=== PATIENT | male | born 1960 ===

== ENCOUNTER 2017-11-02 00:47 | Inpatient (IN) | payer OTHER ==
[2017-11-01 15:11] LABS: INR 1.05
[~2017-11-02] VITALS: Ht 195.6 cm; Wt 110.7 kg
[2017-11-02] VITALS (15 sets, daily range): BP systolic 96–129; BP diastolic 61–90
[~2017-11-02 00:47] MED LIST: CETI10CA8 PO; DIPH-740 PO; FLUT16SP19 NS; IBUP100T54 PO; MULT1CAP59 PO
[2017-11-02] MEDS ORDERED: NORMOSOL R SOLN(*) 1000 ML BAG 1,000 ML IV PRN ×2 (06:15→11:20)
[2017-11-02] MEDS ORDERED: TRANEXAMIC AC 1000 MG/10ML SDV 1,000 MG in DEXTROSE 5% 50 ML BAG 50 ML IV ONE (06:15)
[2017-11-02] MEDS ORDERED: ceFAZolin(*) 2GM/D5W 50ML 50 ML IVPB ONE (06:15)
[2017-11-02] MEDS ORDERED: cloNIDine EPIDUR INJ 100MCG/ML 40 MCG, ROPIVACAINE 0.5% 20 ML VIAL 25 ML, EPINEPHrine H... INJ ONE (06:15)
[2017-11-02] MEDS ORDERED: LIDOCAINE/SOD BICARB 8.4% SYR ID ONE (06:15)
[2017-11-02] MEDS ORDERED: MIDAZOLAM 2 MG/2 ML VIAL IVP PRN (06:15)
[2017-11-02] MEDS ORDERED: FAMOTIDINE 20 MG TAB PO ONE (06:15)
[2017-11-02] MEDS ORDERED: PROPOFOL EMUL(*) 10MG/ML 20 ML 40 ML ONE (07:03)
[2017-11-02] MEDS ORDERED: ONDANSETRON 4 MG/2 ML VIAL ONE (07:03)
[2017-11-02] MEDS ORDERED: MORPHINE PF 5 MG/10 ML AMP ONE (07:03)
[2017-11-02] MEDS ORDERED: DEXAMETHASONE SOD PHOS 10MG/ML ONE (07:03)
[2017-11-02] MEDS ORDERED: LIDOCAINE MPF 1% 5 ML VIAL ONE (07:03)
[2017-11-02] MEDS ORDERED: fentaNYL CITR 100 MCG/2 ML AMP ONE ×2 (07:38→10:26)
[2017-11-02] MEDS ORDERED: KETOROLAC 15 MG/ML VIAL ONE (10:31)
[2017-11-02] MEDS ORDERED: ACETAMINOPHEN(*)1000 MG/100 ML 100 ML IVPB ONE (10:44)
--- NOTE | 2017-11-02 11:09 | RADIOLOGY IMAGING REPORT ---
FACILITY: [facility] PATIENT NAME: Libra Kirkpatrick : 1960 MR: [id number] V: [id number] EXAM DATE: ORDERING PHYSICIAN: FELY MICHELLE TECHNOLOGIST: Location: [facility] Patient: Libra Kirkpatrick : 1960 Visit/Account:[id number] Date of Sevice: 11/02/2017 Study: KNEE LIMITED RIGHT Indication: Pain Comparison study: None Findings: AP and lateral views of the right knee demonstrates a the patient is status post placement of a tibial intramedullary john and a total knee replacement. There are postoperative changes present . There is no evidence of acute bony abnormality. IMPRESSION: Status post right total knee replacement. Report Dictated By: Blas Trinh at 11/02/2017 11:04 AM Report E-Signed By: Blas Trinh at 11/02/2017 11:06 AM WSN:[id number]
[2017-11-02] MEDS ORDERED: FLUSH 10 ML SYR IVP PRN (11:20)
[2017-11-02] MEDS ORDERED: BISACODYL 10 MG SUPP PR PRN (11:20)
[2017-11-02] MEDS ORDERED: MORPHINE SULFATE 30 MG PCA IV PRN (11:20)
[2017-11-02] MEDS ORDERED: NALOXONE HCL 0.4 MG/ML VIAL IVP PRN (11:20)
[2017-11-02] MEDS ORDERED: MAGNESIUM HYDROXIDE* 30ML UDCP PO PRN (11:20)
[2017-11-02] MEDS ORDERED: PROMETHAZINE 25 MG/ML 1 ML AMP IVP PRN (11:20)
[2017-11-02] MEDS ORDERED: ONDANSETRON 4 MG/2 ML VIAL IVP PRN (11:20)
[2017-11-02] MEDS ORDERED: MORPHINE 2 MG/ML SYR IVP PRN (11:25)
[2017-11-02] MEDS ORDERED: diphenhydrAMINE 25 MG CAP PO PRN (11:30)
[2017-11-02] MEDS: CETIRIZINE HCL 10 MG TAB PO SCH (13:00)
--- NOTE | 2017-11-02 13:10 | Hospitalist Consultation ---
History of Present Illness Requesting Physician Dr. Huber Reason for Consult Medication Management Chief Complaint s/p right total knee replacement History of Present Illness He was admitted s/p right knee replacement. It was reported that surgery went well and without complications. He has history only of seasonal allergies. He has no history of DVT/ PE. History Problems: (1) Seasonal allergies Status: Chronic Home Meds Reported Medications Cetirizine Hcl (ZYRTEC) 10 Mg Capsule, 10 MG PO QDAY, CAPSULE 10/27/17 Fluticasone Prop 50 Mcg Ns (FLONASE 50 MCG NS) 16 Gm [place].susp, 1 SPRAY NS DAILY, BOT 1 spray in each nare 10/27/17 Diphenhydramine Hcl (BENADRYL) 25 Mg Capsule, 25 MG PO DAILY Y for ALLERGY SYMPTOMS, CAPSULE 10/27/17 Ibuprofen (IBUPROFEN) 100 Mg Tablet, 2-3 TAB PO DAILY Y for PAIN 10/27/17 Multivitamin (MULTIVITAMINS) 1 Each Capsule, 1 EACH PO DAILY, CAPSULE 10/27/17 Allergies: Coded Allergies: latex (Verified Allergy, Intermediate, REDDNESS/SWELLING, 10/27/17) Hx Smoking: No Caffeine Intake: Coffee Caffeine/Cups Per Day: 1 POT OF COFFEE Hx Alcohol Use: Yes Alcohol Used: Beer Hx Substance Use Disorder: No Social Drug Use: Never History of IV Drug Use: No Review of Systems All Systems Reviewed/Normal: Yes, Except as Noted Exam Vital Signs Vital Signs Date Time Temp Pulse Resp B/P (MAP) Pulse Ox O2 Delivery O2 Flow Rate FiO2 11/02/17 12:00 90 Nasal Cannula 3.5 11/02/17 12:00 97.8 60 12 121/76 (91) General Appearance: Alert, Awake, No Acute Distress, Afebrile Cardiovascular: Regular Rate and Rhythm Respiratory: No Respiratory Distress, Clear to Auscultation Psych: Alert & Oriented X3, Appropriate Mood & Affect Assessment and Plan Problems: (1) Status post right knee replacement Status: Acute Assessment & Plan: He will be on Aspirin 325mg daily for DVT prophylaxis for 30 days. He has no history of DVT or PE. (2) Seasonal allergies Status: Chronic Assessment & Plan: He is on chronic treatment with Zyrtec, Flonase and Benadryl. We will continue these medications during admission. Venous Thromboembolism Antithrombotics Is Pt On Any Antithrombotics?: No Prophylaxis Tx Contraindicated Pharmacological Contraindicati: Surgical Contraindication Exam Sepsis Risk: No Definite Risk JULIANNA GOODEN OVERLOCK SLEEVE SETTER Nov 02, 2017 13:10
[2017-11-02] MEDS: ceFAZolin(*) 2GM/D5W 50ML 50 ML IVPB SCH ×2 (14:44→23:24)
[2017-11-02] MEDS ORDERED: ACETAMINOPHEN 500 MG TAB PO PRN (19:00)
[2017-11-02] MEDS: KETOROLAC TROM 10MG TAB PO PRN (20:39)
[2017-11-02] MEDS: DOCUSATE SODIUM 100 MG CAP PO SCH (20:40)
[2017-11-02] MEDS: ACETAMINOPHEN 500 MG TAB PO SCH (20:40)
[2017-11-03] VITALS (7 sets, daily range): BP systolic 100–130; BP diastolic 60–80; Ht 195.6 cm; Wt 110.7 kg
[2017-11-03] MEDS: KETOROLAC TROM 10MG TAB PO PRN ×2 (04:21→11:32)
[2017-11-03] MEDS: oxyCODONE HCL 5 MG CAP PO PRN ×4 (04:21→19:51)
[2017-11-03] MEDS: ACETAMINOPHEN 500 MG TAB PO SCH ×3 (04:21→19:50)
--- NOTE | 2017-11-03 04:31 | OPERATIVE REPORT 1 ---
EVENT DATE: November 02, 2017 SURGEON: Ludwig Huber MD ANESTHESIOLOGIST: Chad Lucas MD ANESTHESIA: Spinal followed by general. SPOT MAN: Jayesh Yancey PA-C PREOPERATIVE DIAGNOSIS Right knee severe degenerative joint disease with retained tibial nail and one proximal screw. POSTOPERATIVE DIAGNOSIS Right knee severe degenerative joint disease with retained tibial nail and one proximal screw. PROCEDURE PERFORMED Right total knee arthroplasty. IMPLANTS MicroPort medial pivot shift CS system with a 6 femur, 6 tibia, 14 mm CS insert , 35 x 8 symmetric patella, femur cut 6 degrees valgus, 10 mm. We also utilized two packages of DonJoy cobalt blue cement and one ZipLine wound closure system. Patient received 1 gram of IV tranexamic acid by anesthesia 10 minutes prior to start and after the implantation of the prostheses. We also utilized 50 mL of our standard ropivacaine/Toradol cocktail. SPECIMENS None. COMPLICATIONS None. ESTIMATED BLOOD LOSS Less than 300 mL. OPERATION Patient received appropriate preoperative antibiotic, was brought to the OR, where Dr. Lucas performed spinal followed by general anesthesia. Right thigh tourniquet was placed, right lower extremity prepped and draped in the usual sterile fashion. Midline incision, followed by medial parapatellar arthrotomy. I dissected subperiosteally along the medial tibial plateau to the level of the semimembranosus insertion. We achieved hemostasis as we went with Bovie cautery. Significant fat pad was excised, patella released and everted. We outed the tibial screw inferior medial to the tibial tubercle. However, the implant had an end cap which contacted the screw, so unless we would need to take the screw out or the implant out, we left the end cap alone at this point. We noted eburnation in the medial compartment and grade 3 and 4 changes of the patellofemoral compartment, grade 2 changes in the lateral tibial plateau, grade 3 and 4 changes in the lateral femoral condyle. Significant spurring was noted around the femoral condyles and superior trochlear groove, and these were removed with rongeur. Significant spurring was noted over the medial tibial plateau, and this was removed with the rongeur. ACL was absent. PCL was released subperiosteally by Bovie. The knee was hyperflexed at this time. We placed appropriate retractors. Remaining articular cartilage was removed from the distal femoral condyles by sagittal saw. Step cut drill was utilized to broach the canal. We placed our intramedullary guide, setting up the distal cut at 10 mm, 6 degrees valgus. Appropriate retractors were placed to protect the soft tissue. We made our distal cut. 3 degree external rotation guide and sizing guide was then positioned, referencing out the epicondyles, posterior condyles, and anterior flange. Femur was sized to a 6, and the 3 degree holes were drilled. The 4-in-1 cutting guide was then positioned. Z retractors were placed to protect the soft tissue, and four cuts were made. Tibia was brought anteriorly on the femur with appropriate retractors. Extramedullary guide was then set up. Referenced for slope and rotation and depth of 10 mm of the least involved lateral tibial plateau. Block was pinned into place, appropriate retractors placed to protect the soft tissues. Tibial cut was made, sized to a 6. There were further osteophytes noted at the posterior tibial plateau and laterally, and these were removed by rongeur. Stump of the PCL and medial and lateral meniscus were removed by Bovie. Significant posterior osteophytes were removed with curved osteotome, and capsule elevated with a Georges elevator. As we went through the case, we noted two other significant osteophytes, at least 4 x 3 x 4 cm, removed from the posterior capsule region. Tibial base plate was then set up. Trial was then set up, referencing from the previous rotation. This was pinned into place. We started with 12 mm insert, then moved up to a 14. We then placed our trial femur, brought the knee knee into full extension, placed our alignment john, and tibia was aligned appropriately with appropriate slope and referencing centrally in the ankle. We had stability through varus, valgus stress, and at 90 degrees, we had satisfactory drawer. We then placed the knee in full extension, sized the patella to 26 mm in depth, cut this down 8 mm, and this accepted a peg hole guide of 35 x 8, which was then positioned inferomedially. Peg hole was drilled. Patella was placed. Knee brought up into flexion. Peg hole was drilled for the femur, placed, and trochlear chip was cut and trial was placed. Again we had full extension, flexion of 140 degrees, stability through varus, valgus stress. The patella tracked well. At 90 degrees, we had solid anterior drawer. Patella, femur, trial tibial insert were removed. Appropriate retractors were placed. We set up our tower for the tibia. We were able to cut, ream and punch and made no contact with either the screw or the tibial nail. Secondary to that, we elected to leave this in, and this was the patient's preference if at all possible also. We then removed all instrumentation, placed a bone plug in the distal femur and brought the knee out in full extension. We copiously irrigated by pulse lavage while we mixed 2 packages of cobalt blue cement. We injected 10 mL of our cocktail into the posterior capsule, brought the knee up into flexion, placed appropriate retractors, cemented the tibia into place followed by our 14 mm CS insert, then our 6 femur. Excess cement was removed. Knee brought up to full extension with axial compression while we cemented the patella. We then injected the remainder of our cocktail into the distal quad mechanism. After 15 minutes, the cement had hardened. Again we had the aforementioned range of motion and stability. We copiously irrigated by pulse lavage once again. We then closed the arthrotomy with #2 Vicryl followed by 2-0 Vicryl for subcutaneous tissues and ZipLine wound closure system at 45 degrees. Compressive dressing was applied. Patient was extubated and taken to recovery in stable condition. Hospitalist team will be consulted for medical management and anticoagulation, PT and OT for rehab. JEAN-PAUL
[2017-11-03] MEDS: ceFAZolin(*) 2GM/D5W 50ML 50 ML IVPB SCH (07:26)
[2017-11-03] MEDS: CETIRIZINE HCL 10 MG TAB PO SCH (09:04)
[2017-11-03] MEDS: ASPIRIN 325 MG ENTERIC COATED PO SCH (09:04)
[2017-11-03] MEDS: DOCUSATE SODIUM 100 MG CAP PO SCH ×2 (09:04→20:55)
[2017-11-03] MEDS: POLYETHYLENE GLYCOL 17 GM PKT PO SCH (09:06)
[2017-11-03] MEDS: FLUTICASONE PROP 0.05% 16 GM SCH (09:06)
--- NOTE | 2017-11-03 09:53 | Hospitalist Progress Note ---
Subjective Progress Notes Subjective He has complaints of difficulty urinating this morning. Patient Complains of: Cardiovascular: No: Chest Pain Respiratory: No: Shortness of Breath Physical Exam Vital Signs Date Time Temp Pulse Resp B/P (MAP) Pulse Ox O2 Delivery O2 Flow Rate FiO2 11/03/17 07:43 98.1 66 13 113/67 (82) 92 Nasal Cannula 4.0 Intake and Output 11/04/17 07:00 Intake Total 95.9 ml Output Total 10 ml Balance 85.9 ml IV Total 95.9 ml Output Urine Total 10 ml # Voids 1 General Appearance: Alert, Awake, No Acute Distress, Afebrile Cardiovascular: Regular Rate and Rhythm Respiratory: No Respiratory Distress, Clear to Auscultation Psych: Alert & Oriented X3, Appropriate Mood & Affect Result Diagram: 11/03/17 0533 Assessment and Plan Problems: (1) Status post right knee replacement Status: Acute Assessment & Plan: He will be on Aspirin 325mg daily for DVT prophylaxis for 30 days. He has no history of DVT or PE. (2) Seasonal allergies Status: Chronic Assessment & Plan: He is on chronic treatment with Zyrtec, Flonase and Benadryl. We will continue these medications during admission. Exam Sepsis Risk: No Definite Risk JULIANNA GOODENP Nov 03, 2017 09:53
[2017-11-03] MEDS ORDERED: TAMSULOSIN HCL 0.4 MG CAP PO ONE (10:20)
--- NOTE | 2017-11-03 14:14 | PROGRESS NOTE ---
DATE: November 03, 2017 SUBJECTIVE Patient is a 57-year-old male status post right total knee arthroplasty, postop day one. He reports his pain is controlled, but he simply feels tried. EXAMINATION VITAL SIGNS: Vital signs show him to be afebrile, pulse is 62, blood pressure is 100/60. EXTREMITIES: Right lower extremity shows it to be neurovascularly intact and dressed. ASSESSMENT AND PLAN Postoperative day one right total knee arthroplasty. Patient reports his pain is controlled. He was up several times yesterday with Therapy and will continue that process today. Up out of bed with Physical Therapy and range of motion strengthening. Hospitalist team is managing the medical issues. We will also start discharge planning. JEAN-PAUL
[2017-11-04] MEDS: oxyCODONE HCL 5 MG CAP PO PRN ×2 (02:36→07:42)
[2017-11-04 02:39] VITALS: BP 137/83
[2017-11-04] MEDS: ACETAMINOPHEN 500 MG TAB PO SCH (04:02)
[2017-11-04 07:16] VITALS: BP 122/78
[2017-11-04] MEDS ORDERED: OXYC-869 PO (07:58)
[2017-11-04] MEDS: POLYETHYLENE GLYCOL 17 GM PKT PO SCH (09:00)
[2017-11-04] MEDS: ASPIRIN 325 MG ENTERIC COATED PO SCH (09:25)
[2017-11-04] MEDS: CETIRIZINE HCL 10 MG TAB PO SCH (09:25)
[2017-11-04] MEDS: DOCUSATE SODIUM 100 MG CAP PO SCH (09:25)
[2017-11-04] MEDS: FLUTICASONE PROP 0.05% 16 GM SCH (09:25)
[2017-11-04] MEDS: KETOROLAC TROM 10MG TAB PO PRN (09:30)
--- NOTE | 2017-11-04 09:33 | Hospitalist Progress Note ---
Subjective Progress Notes Subjective He has no complaints this morning. He states he is ready to go home. Patient Complains of: Cardiovascular: No: Chest Pain Respiratory: No: Shortness of Breath Physical Exam Vital Signs Date Time Temp Pulse Resp B/P (MAP) Pulse Ox O2 Delivery O2 Flow Rate FiO2 11/04/17 08:16 86 Nasal Cannula 1.0 11/04/17 07:16 98.9 80 122/78 (93) 11/04/17 02:39 12 Intake and Output 11/05/17 07:00 # Voids 1 General Appearance: Alert, Awake, No Acute Distress, Afebrile Cardiovascular: Regular Rate and Rhythm Respiratory: No Respiratory Distress, Clear to Auscultation Psych: Alert & Oriented X3, Appropriate Mood & Affect Result Diagram: 11/04/17 0510 Assessment and Plan Problems: (1) Status post right knee replacement Status: Acute Assessment & Plan: He will be on Aspirin 325mg daily for DVT prophylaxis for 30 days. He has no history of DVT or PE. (2) Seasonal allergies Status: Chronic Assessment & Plan: He is on chronic treatment with Zyrtec, Flonase and Benadryl. Exam Sepsis Risk: No Definite Risk JULIANNA GOODEN CHLORINE PLANT OPERATOR Nov 04, 2017 09:33
[2017-11-04] MEDS ORDERED: ASPI-764 PO (10:04)
== END 2017-11-04 11:45 | disposition home or self-care (01) | DRG 470 ==
LOC: OR 00:47 → OBSVTOIN 11:58 → MED 11:58
PROVIDERS: ADMIT Orthopaedic Surgery; ATTEND Orthopaedic Surgery
PROC: 0SRC0J9 Replacement of Right Knee Joint with Synthetic Substitute, Cemented, Open Approach (ICD-10-PCS; principal; 2017-11-02 07:10)
DX: M17.0 Bilateral primary osteoarthritis of knee (principal); T84.498A Other mechanical complication of other internal orthopedic devices, implants and grafts, initial encounter; F10.99 Alcohol use, unspecified with unspecified alcohol-induced disorder; M25.561 Pain in right knee; M25.562 Pain in left knee; M25.461 Effusion, right knee; Z91.040 Latex allergy status; Z79.82 Long term (current) use of aspirin; Z79.1 Long term (current) use of non-steroidal anti-inflammatories (NSAID); Z98.890 Other specified postprocedural states; J30.2 Other seasonal allergic rhinitis
CPT/HCPCS: 36415; 85014; 85018; 85610; 86850; 86900; 86901; 94667; 94668; 97161; C1713; C1776; J0131; J0171; J0690; J0735; J1100; J1885; J2001; J2250; J2270; J2405; J2704; J2795; J3010; J7050; J7060; Q0163

== ENCOUNTER 2018-06-14 00:55 | Inpatient (IN) | payer OTHER ==
[2018-06-13 14:37] LABS: INR 0.98
[2018-06-14] VITALS (15 sets, daily range): BP systolic 106–133; BP diastolic 65–88
[~2018-06-14] VITALS: Ht 195.6 cm; Wt 111.6 kg
[~2018-06-14 00:55] MED LIST changes: +ASPI-764 PO; +OXYC-869 PO
[2018-06-14] MEDS ORDERED: LIDOCAINE/SOD BICARB 8.4% SYR ID ONE (06:15)
[2018-06-14] MEDS ORDERED: CELECOXIB 200 MG CAP PO ONE (06:15)
[2018-06-14] MEDS ORDERED: MIDAZOLAM 2 MG/2 ML VIAL IVP PRN (06:15)
[2018-06-14] MEDS ORDERED: cloNIDine EPIDUR INJ 100MCG/ML 40 MCG, ROPIVACAINE 0.5% 20 ML VIAL 25 ML, EPINEPHrine H... INJ ONE (06:15)
[2018-06-14] MEDS ORDERED: ROPIVACAINE 0.2% 400 MG/200ML 250 ML CONINFUS ONE (06:15)
[2018-06-14] MEDS ORDERED: NORMOSOL R SOLN(*) 1000 ML BAG 1,000 ML IV PRN ×2 (06:15→10:25)
[2018-06-14] MEDS ORDERED: FAMOTIDINE 20 MG TAB PO ONE (06:15)
[2018-06-14] MEDS ORDERED: TRANEXAMIC AC 1000 MG/10ML SDV 1,000 MG in DEXTROSE 5% 50 ML BAG 50 ML IV ONE (06:15)
[2018-06-14] MEDS ORDERED: ACETAMINOPHEN 500 MG TAB PO ONE (06:15)
[2018-06-14] MEDS ORDERED: ceFAZolin(*) 2GM/D5W 50ML 50 ML IVPB ONE (06:15)
[2018-06-14] MEDS ORDERED: PREGABALIN 150 MG CAPSULE PO ONE (06:15)
[2018-06-14] MEDS ORDERED: fentaNYL CITR 100 MCG/2 ML AMP ONE ×2 (07:45→09:33)
[2018-06-14] MEDS ORDERED: LACTATED RINGER 3000 ML BAG IR ONE (08:08)
[2018-06-14] MEDS ORDERED: NS 0.9% IRRIGATION 1000ML PLCT IR ONE (08:09)
[2018-06-14] MEDS ORDERED: ONDANSETRON 4 MG/2 ML VIAL ONE (08:27)
[2018-06-14] MEDS ORDERED: PROPOFOL EMUL(*) 10MG/ML 20 ML 40 ML ONE (08:27)
[2018-06-14] MEDS ORDERED: DEXAMETHASONE SOD 4 MG/ML VIAL ONE (08:27)
[2018-06-14] MEDS ORDERED: ROPIVACAINE 0.2% 20 ML VIAL ONE (08:27)
[2018-06-14] MEDS ORDERED: HYDROmorphone HCL 2 MG/ML SDV ONE (10:02)
[2018-06-14] MEDS ORDERED: BISACODYL 10 MG SUPP PR PRN (10:25)
[2018-06-14] MEDS ORDERED: MAGNESIUM HYDROXIDE* 30ML UDCP PO PRN (10:25)
[2018-06-14] MEDS ORDERED: ONDANSETRON 4 MG/2 ML VIAL IVP PRN (10:25)
[2018-06-14] MEDS ORDERED: MORPHINE 4 MG/ML SDV IVP PRN (10:25)
[2018-06-14] MEDS ORDERED: FLUSH 10 ML SYR IVP PRN (10:25)
[2018-06-14] MEDS ORDERED: ZOLPIDEM TARTRATE 5 MG TAB PO PRN (10:25)
[2018-06-14] MEDS ORDERED: PROMETHAZINE 25 MG/ML 1 ML AMP IVP PRN (10:25)
[2018-06-14] MEDS ORDERED: oxyCODONE HCL 5 MG CAP PO PRN (10:30)
[2018-06-14] MEDS: KETOROLAC TROM 10MG TAB PO PRN ×2 (11:30→17:55)
[2018-06-14] MEDS: traMADol 50 MG TAB PO PRN ×2 (12:17→19:35)
--- NOTE | 2018-06-14 12:34 | RADIOLOGY IMAGING REPORT ---
FACILITY: [facility] PATIENT NAME: Libra Kirkpatrick : 1960 MR: [id number] V: [id number] EXAM DATE: ORDERING PHYSICIAN: FELY MICHELLE TECHNOLOGIST: Location: [facility] Patient: Libra Kirkpatrick : 1960 Visit/Account:[id number] Date of Sevice: 06/14/2018 KNEE LIMITED LEFT Indication: POST-OP PLACEMENT Comparison: None. Findings: There are postoperative changes from a left total knee arthroplasty. The femoral, tibial, and patellar components are normal in position. Impression: Postoperative changes left total knee arthroplasty. Report Dictated By: Marcello Luis at 06/14/2018 12:30 PM Report E-Signed By: Marcello Luis at 06/14/2018 12:30 PM WSN:[id number]
--- NOTE | 2018-06-14 13:23 | Hospitalist Consultation ---
History of Present Illness Requesting Physician Dr. Huber Reason for Consult Medical Management Chief Complaint s/p left total knee replacement History of Present Illness He was admitted s/p left total knee replacement. It is reported the surgery went well and without complication. History Problems: (1) Seasonal allergies Status: Chronic Home Meds Reported Medications Fluticasone Prop 50 Mcg Ns (FLONASE 50 MCG NS) 16 Gm [place].susp, 1 SPRAY NS DAILY, BOT 1 spray in each nare 10/27/17 Diphenhydramine Hcl (BENADRYL) 25 Mg Capsule, 25 MG PO DAILY PRN for ALLERGY SYMPTOMS, CAPSULE 10/27/17 Discontinued Reported Medications Aspirin (ASPIRIN EC) 325 Mg Tablet.dr, 325 MG PO QDAY, TAB 11/04/17 Oxycodone Hcl/Acetaminophen (PERCOCET 7.5-325 MG TABLET) 1 Each Tablet, 1-2 EACH PO Q6H PRN for PAIN, TAB 11/04/17 Cetirizine Hcl (ZYRTEC) 10 Mg Capsule, 10 MG PO QDAY, CAPSULE 10/27/17 Multivitamin (MULTIVITAMINS) 1 Each Capsule, 1 EACH PO DAILY, CAPSULE 10/27/17 Allergies: Coded Allergies: latex (Verified Allergy, Intermediate, REDDNESS/SWELLING, 10/27/17) Patient History: Hypertension BROTHER OR SISTER Pacemaker FATHER TIAs MOTHER Hx Smoking: No Smoking Status: Never Smoker Caffeine Intake: Coffee Caffeine/Cups Per Day: 1 POT OF COFFEE Hx Alcohol Use: Yes Hx Substance Use Disorder: No Social Drug Use: Never Review of Systems All Systems Reviewed/Normal: Yes, Except as Noted Exam Vital Signs Vital Signs Date Time Temp Pulse Resp B/P (MAP) Pulse Ox O2 Delivery O2 Flow Rate FiO2 06/14/18 11:01 98.1 60 12 133/81 (98) 93 Nasal Cannula 2.0 General Appearance: Alert, Awake, No Acute Distress, Afebrile Neuro: No Gross deficits Cardiovascular: Regular Rate and Rhythm Respiratory: No Respiratory Distress, Clear to Auscultation GI: Abd Soft and Non-Tender Psych: Alert & Oriented X3, Appropriate Mood & Affect Assessment and Plan Problems: (1) Status post total left knee replacement Status: Acute Assessment & Plan: Followed by Dr. Huber. He will be placed on Aspirin 325mg for DVT prophylaxis. He has no history of DVT or PE. (2) Seasonal allergies Status: Chronic Assessment & Plan: He is on chronic treatment with Flonase and Benadryl. Venous Thromboembolism Antithrombotics Is Pt On Any Antithrombotics?: No JULIANNA GOODEN CARD BRUSHER Jun 14, 2018 13:23
--- NOTE | 2018-06-14 13:36 | OPERATIVE REPORT 1 ---
EVENT DATE: June 14, 2018 SURGEON: Ludwig Huber MD ANESTHESIOLOGIST: Chad Lucas MD ANESTHESIA: Left indwelling adductor block, followed by general anesthesia. We also used 1 gram of IV Tranexamic Acid 10 minutes prior to start and after the implantation of the instrumentation. We also used 50 cc of our standard Ropivacaine/Toradol cocktail. CONTENT ENGINEER: COTY Turner, ANNUAL GREENHOUSE MANAGER PREOPERATIVE DIAGNOSIS Left knee degenerative joint disease with varus alignment. POSTOPERATIVE DIAGNOSIS Left knee degenerative joint disease with varus alignment. PROCEDURE PERFORMED Left total knee arthroplasty. IMPLANTS USED MicroPort Medial-Pivot CS system with a 6+ tibia, 17 mm CS insert, 6 femur, 8 x 35 symmetric patella. Femur cut to 6 degrees of valgus, 10 mm. We also utilized two packages of DonJoy [place] Blue Cement and ZipLine wound closure system. DESCRIPTION OF PROCEDURE The patient received appropriate preoperative antibiotic, was brought to the operating room where Dr. Lucas performed left adductor block followed by general anesthesia. Left thigh tourniquet was placed but was not utilized. The left lower extremity was prepped and draped in the usual sterile fashion. A midline incision was made, followed by a medial peripatellar arthrotomy. We dissected subperiosteally along the medial tibial plateau to the level of the semimembranosus insertion. Laterally, we excised the fat pad, released the patella and everted this. We noted osteophytes in the notch. These were removed by the [place]. There was eburnation portion of the medial femoral condyle and the medial tibial plateau. There was grade 3 changes in the lateral femoral condyle. No significant changes in the lateral tibial plateau. The patella showed grade 2 and 3 changes. The remaining articular cartilage was removed from the distal femoral condyles by sagittal saw. ACL and PCL were released subperiosteally by Bovie. A step cut drill was utilized to broach the canal. I placed the intramedullary digital femoral alignment guide, setting the block up at 6 degrees valgus, 10 mm. Retractors were placed for soft tissue protection. Distal cut made. 3-degree external rotation cynthia and sizer were then placed, referencing off the anterior flange, epicondyles, posterior condyles. Femur was sized to a #6. The holes drilled. Four-in-one cutting block was then positioned, followed by Z retractors to protect the soft tissues and the four cuts were made. The tibia was brought anterior to the femur with appropriate retractors. Step cut drill was utilized to broach the tibial canal. We placed an intramedullary tibial guide. We then set this up for 10 mm cut off the least involved lateral tibial plateau and set reference for rotation, pinned the block into place. Retractors were placed, tibial cut was made. We measured the cut bone and laterally we were 10 mm and approximately 6-7 mm medially. We then removed the stump of the ACL and PCL, and medial lateral meniscus by Bovie, followed by removal of posterior osteophytes by curved osteotome and elevated the capsule with the Georges elevator. We then placed our trial #6 tibial base plate and we placed a 12 mm insert and eventually moved up to a 17 mm insert with a #6 femur. This achieved full extension. The patella tracked well. He had stability through varus, valgus stress from 0-90 degrees and at 90 degrees he had good endpoint anterior drawer. He was brought up in full extension and patella was sized to a 23 mm and utilizing cutting guide this was cut down to 15 mm. The peg hole guide was positioned inferomedially. the peg hole was drilled for a 35 x 8 patella which was then placed and brought the knee up in flexion, drilled for the peg holes, placed these and cut for a trochlear chip and placed this. Again, we had the aforementioned range of motion of 0-140 degrees, stability to varus valgus stress, patella tracked well and good end point was noted on anterior drawer. The patella, femur and tibia were removed. Appropriate retractors were placed and we set up our tibial tower for a keel which was cut, reamed, and punched. All instrumentation was then removed. Bone plug placed in the distal femur. Two packages of DonJoy [place] Blue Cement were mixed. While we irrigated the joint, placed 10 cc of our cocktail in the posterior capsule and brought the knee up to appropriate position to cement the implant. We started with the tibial. This was placed, followed by our 17 mm CS insert, then a #6 femur. Excess cement was removed. Knee brought into full extension with axial compression while we cemented the patella. We then injected the remaining 4 cc of our cocktail in the distal quadriceps mechanism, copiously irrigated by pulse lavage as we applied axial compression. After 14 minutes the cement had cured. Again, we had the aforementioned range of motion, stability. We placed the knee at 30 degrees. We then closed the arthrotomy with #2 Vicryl in a [id number] suture fashion, followed by 2-0 Vicryl for the subcutaneous tissues and at 45-degrees we placed our ZipLine wound closure system. A compressive dressing was applied. Patient extubated and taken to Recovery in stable condition. Hospitalist team will be consulted for medical management and anticoagulation, PT for rehab. JEAN-PAUL
[2018-06-14] MEDS ORDERED: NS(*) 0.9% 500 ML BAG 500 ML IV PRN (14:00)
[2018-06-14] MEDS: ACETAMINOPHEN 500 MG TAB PO SCH ×2 (14:31→21:59)
[2018-06-14] MEDS: ceFAZolin(*) 2GM/D5W 50ML 50 ML IVPB SCH ×2 (16:19→23:42)
[2018-06-15 00:16] VITALS: BP 119/67
[2018-06-15 04:27] VITALS: BP 113/61
[2018-06-15] MEDS: KETOROLAC TROM 10MG TAB PO PRN ×3 (06:00→18:12)
[2018-06-15] MEDS: ACETAMINOPHEN 500 MG TAB PO SCH ×3 (06:01→20:55)
[2018-06-15 07:11] VITALS: BP 108/73
[2018-06-15] MEDS: ceFAZolin(*) 2GM/D5W 50ML 50 ML IVPB SCH (07:29)
[2018-06-15] MEDS: traMADol 50 MG TAB PO PRN ×3 (07:35→20:55)
[2018-06-15] MEDS ORDERED: FLUTICASONE PROP 0.05% 16 GM ENA SCH ×2 (09:00→21:00)
[2018-06-15] MEDS: CETIRIZINE HCL 10 MG TAB PO SCH (09:36)
[2018-06-15] MEDS: ASPIRIN 325 MG TAB PO SCH (09:36)
[2018-06-15 12:14] VITALS: Ht 195.6 cm; Wt 111.6 kg
[2018-06-15 13:52] VITALS: BP 122/78
--- NOTE | 2018-06-15 14:05 | Hospitalist Progress Note ---
Subjective Progress Notes Subjective He has no complaints this morning. He had no acute events overnight. Patient Complains of: Cardiovascular: No: Chest Pain Respiratory: No: Shortness of Breath Physical Exam Vital Signs Date Time Temp Pulse Resp B/P (MAP) Pulse Ox O2 Delivery O2 Flow Rate FiO2 06/15/18 13:52 99.8 75 16 122/78 (93) 90 Nasal Cannula 1.0 l Intake and Output 06/15/18 07:00 Intake Total 4512 ml Balance 4512 ml Intake Oral 1340 ml IV Total 2972 ml Other 200 ml # Voids 4 General Appearance: Alert, Awake, No Acute Distress, Afebrile Neuro: No Gross deficits Cardiovascular: Regular Rate and Rhythm Respiratory: No Respiratory Distress, Clear to Auscultation GI: Soft and Non-Tender Psych: Alert & Oriented X3, Appropriate Mood & Affect Assessment and Plan Problems: (1) Status post total left knee replacement Status: Acute Assessment & Plan: Followed by Dr. Huber. He will be placed on Aspirin 325mg for DVT prophylaxis. He has no history of DVT or PE. (2) Seasonal allergies Status: Chronic Assessment & Plan: He is on chronic treatment with Flonase and Benadryl. Exam Sepsis Risk: No Definite Risk JULIANNA GOODEN DIRECTOR OF AGRONOMY Jun 15, 2018 14:05
[2018-06-15] MEDS: DOCUSATE SODIUM 100 MG CAP PO SCH (20:54)
[2018-06-15 21:10] VITALS: BP 123/85
[2018-06-16] MEDS: KETOROLAC TROM 10MG TAB PO PRN ×2 (00:18→13:20)
[2018-06-16 03:22] VITALS: BP 132/78
[2018-06-16] MEDS: ACETAMINOPHEN 500 MG TAB PO SCH ×2 (05:42→13:20)
[2018-06-16] MEDS: traMADol 50 MG TAB PO PRN ×2 (05:43→08:41)
[2018-06-16 07:28] VITALS: BP 145/91
[2018-06-16] MEDS: CETIRIZINE HCL 10 MG TAB PO SCH (08:32)
[2018-06-16] MEDS: ASPIRIN 325 MG TAB PO SCH (08:32)
[2018-06-16] MEDS ORDERED: OXYC5TAB38 PO (08:36)
[2018-06-16] MEDS ORDERED: KET10 PO (08:37)
[2018-06-16] MEDS ORDERED: TRAM-420 PO (08:38)
[2018-06-16] MEDS: DOCUSATE SODIUM 100 MG CAP PO SCH (09:00)
[2018-06-16] MEDS ORDERED: ONDA4TAB97 PO (10:16)
[2018-06-16 10:17] VITALS: BP 148/91
[2018-06-16] MEDS ORDERED: ASPI-757 PO (11:02)
--- NOTE | 2018-06-16 11:38 | Hospitalist Progress Note ---
Subjective Progress Notes Subjective He has no complaints this morning. He had no acute events overnight. Patient Complains of: Cardiovascular: No: Chest Pain Respiratory: No: Shortness of Breath Physical Exam Vital Signs Date Time Temp Pulse Resp B/P (MAP) Pulse Ox O2 Delivery O2 Flow Rate FiO2 06/16/18 11:09 90 Nasal Cannula 2.0 06/16/18 10:17 102 16 148/91 (110) 06/16/18 07:28 99.4 Intake and Output 06/16/18 00:00 Intake Total 240 ml Balance 240 ml Intake Oral 240 ml # Voids 4 # Bowel Movements 1 General Appearance: Alert, Awake, No Acute Distress, Afebrile Neuro: No Gross deficits Cardiovascular: Regular Rate and Rhythm Respiratory: No Respiratory Distress, Clear to Auscultation GI: Soft and Non-Tender Psych: Alert & Oriented X3, Appropriate Mood & Affect Assessment and Plan Problems: (1) Status post total left knee replacement Status: Acute Assessment & Plan: Followed by Dr. Huber. He will be placed on Aspirin 325mg for DVT prophylaxis. He has no history of DVT or PE. He will require oxygen post-operatively. He will follow up with his PCP for follow up in one week. (2) Seasonal allergies Status: Chronic Assessment & Plan: He is on chronic treatment with Flonase and Benadryl. Exam Sepsis Risk: No Definite Risk JULIANNA GOODEN BODY WORKER Jun 16, 2018 11:38
== END 2018-06-16 13:35 | disposition home or self-care (01) | DRG 470 ==
LOC: OR 00:55 → OBSVTOIN 10:58 → MED 10:58 → INTOOBSV 10:58
PROVIDERS: ADMIT Orthopaedic Surgery; ATTEND Orthopaedic Surgery
PROC: 0SRD0J9 Replacement of Left Knee Joint with Synthetic Substitute, Cemented, Open Approach (ICD-10-PCS; principal; 2018-06-14 07:20)
DX: M17.12 Unilateral primary osteoarthritis, left knee (principal); M21.162 Varus deformity, not elsewhere classified, left knee; Z91.040 Latex allergy status
CPT/HCPCS: 36415; 76942; 85610; 86850; 86900; 86901; 97161; C1713; C1776; J0171; J0690; J0735; J1100; J1170; J1885; J2250; J2405; J2704; J2795; J3010; J7050; J7060